=== PATIENT | male | born 1940 | race Caucasian/White ===

== ENCOUNTER 2019-07-18 11:06 | Emergency (ER) | payer MEDICARE, BC ==
[2019-07-18] MEDS ORDERED: Diphtheria,Pertussis(Acell),Tetanus Vaccine 0.5 ML SDV IM ONE (11:12)
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
--- NOTE | 2019-07-18 11:57 | CRLCT ---
INDICATION: Fall. Scalp hematoma. Comparison none. TECHNIQUE: Noncontrast CT of the head. FINDINGS: Scalp swelling and hematoma overlying the left parietal calvarium. No underlying fracture. Moderate generalized volume loss. No acute intracranial hemorrhage, acute infarct, mass effect, or fracture. No midline shift. No abnormal ventricular dilatation. Patchy low-attenuation change within the white matter consistent with chronic small vessel ischemic changes. Normal calvarium and skull base. Visualized paranasal sinuses and mastoid air cells are clear. Intracranial carotid artery calcifications. Postoperative changes of the right globe. IMPRESSION: 1. Scalp hematoma overlying the left parietal calvarium. No underlying fracture. 2. No intracranial hemorrhage. No acute infarct. 3. Moderate generalized cerebral volume loss. Chronic deep white matter small vessel ischemic changes. Dictated by Rajeev Wagoner MD @ 07/18/2019 11:56:15 AM Please note that all CT scans at this facility use dose modulation, iterative reconstruction, and/or weight-based dosing when appropriate to reduce radiation dose to as low as reasonably achievable. Dictated by: Rajeev Wagoner MD @ 07/18/2019 11:56:29 (Electronically Signed)
--- NOTE | 2019-07-18 12:14 | CRLCT ---
INDICATION: Fall. COMPARISON: None. TECHNIQUE: Noncontrast CT cervical spine. FINDINGS: Straightening of the normal cervical lordosis which may be due to muscle spasm or patient positioning. Normal vertebral body and facet alignment. No acute fractures. No vertebral body loss of height. No spondylolisthesis. No prevertebral soft tissue swelling. C1-2: No spinal canal narrowing. C2-3: No spinal canal or neural foraminal narrowing. C3-4: Posterior disc bulge. No spinal canal narrowing. Mild narrowing of the left neural foramen. No narrowing of the right neural foramen. C4-5: Disc degeneration. Posterior disc bulge. Mild narrowing of spinal canal. No neural foraminal narrowing. Ventral osteophytic spurring. C5-6: Disc degeneration. No narrowing of spinal canal. No neural foraminal narrowing. C6-7: No spinal canal narrowing. Mild narrowing of the left neural foramen. No narrowing of the right neural foramen. C7-T1: No spinal canal or neural foraminal narrowing. No fractures of the visualized upper ribs. Vascular calcifications. Partially visualized cardiac pacer leads. Left CVC. IMPRESSION: 1. Straightening of the normal cervical lordosis. Otherwise, normal alignment. 2. No acute fractures. No spondylolisthesis. 3. No prevertebral soft tissue swelling 4. Cervical spondylosis 5. Mild narrowing of the spinal canal at C4-5 6. Mild narrowing of the left neural foramina C3-4 and C6-7. Dictated by Rajeev Wagoner MD @ 07/18/2019 12:12:18 PM Please note that all CT scans at this facility use dose modulation, iterative reconstruction, and/or weight-based dosing when appropriate to reduce radiation dose to as low as reasonably achievable. Dictated by: Rajeev Wagoner MD @ 07/18/2019 12:12:58 (Electronically Signed)
[2019-07-18 12:32] VITALS: BP 125/71; PULSE 88
== END 2019-07-18 13:10 | disposition home or self-care (01) ==
LOC: JP.ED 11:06
DX: S01.01XA Laceration without foreign body of scalp, initial encounter (principal); H26.9 Unspecified cataract; E78.00 Pure hypercholesterolemia, unspecified; I10 Essential (primary) hypertension; I25.2 Old myocardial infarction; Z95.5 Presence of coronary angioplasty implant and graft; Z79.899 Other long term (current) drug therapy; Z23 Encounter for immunization; V00.831A Fall from motorized mobility scooter, initial encounter; Y93.89 Activity, other specified
CPT/HCPCS: 12001; 70450; 72125; 90471; 90715; 99283; 99284-25